=== PATIENT | male | born 1960 | race Caucasian/White ===

== ENCOUNTER 2017-10-14 12:39 | Emergency (ER) | payer BC ==
[2017-10-14] MEDS ORDERED: Sodium Chloride 0.9% 10 ML Syringe FLUSH PRN (12:50)
--- NOTE | 2017-10-14 12:58 | EDM.PDOC ---
ED HPI GENERAL MEDICAL PROBLEM - General Chief Complaint: Lower Extremity Injury/Pain Stated Complaint: LEFT FOOT PAIN Time Seen by Provider: 10/14/17 12:45 Source of Information: Reports: Patient History Limitations: Reports: No Limitations - History of Present Illness INITIAL COMMENTS - FREE TEXT/NARRATIVE: Patient states that for approximately the last week he's been experiencing left foot pain he states that he knows that a cart at work about 1,000 pounds has ran his left foot almost on a daily. Does not have any open sores but thought possibly it could be gout free does have a history of gout especially on his right foot. However he does state that this does feel different his whole foot has been swollen he did try using colchicine x4 doses with no relief 2 days ago which normally controls the gout symtpoms. Patient states he has felt a little bit more fatigued and not really in appetite which is also not consistent with him. The left foot is extremely painful has trouble importance soft for the extreme pain is unable to bear weight because of it he states it's much more swollen and red and warm and wanted normally is. Onset: Gradual Onset Date: 10/09/17 Duration: Getting Worse Location: Reports: Lower Extremity, Left Quality: Reports: Sharp, Stabbing, Throbbing Severity: Severe Improves with: Reports: Immobilization Worsens with: Reports: Movement Associated Symptoms: Reports: Malaise. Denies: Confusion, Chest Pain, Cough, cough w sputum, Diaphoresis, Fever/Chills Left Feet Pain Score (Numeric/FACES): 10 - Related Data Allergies Allergy/AdvReac Type Severity Reaction Status Date / Time Penicillins Allergy Other Verified 10/14/17 13:13 tramadol Allergy Nausea Verified 10/14/17 13:14 Home Meds: Home Meds Lisinopril 5 - 10 mg PO DAILY 03/12/15 [History] Cyclobenzaprine [Flexeril] 10 mg PO TID PRN #30 tablet 04/06/16 [Rx] Citalopram [Celexa] 20 mg PO DAILY 06/26/16 [History] Diazepam [Valium] 10 mg PO BID PRN 06/26/16 [History] Past Medical History HEENT History: Reports: Impaired Vision, Other (See Below) Other HEENT History: Trifocals Cardiovascular History: Reports: Hypertension, Other (See Below) Other Cardiovascular History: Patient does not know his cholesterol status Respiratory History: Reports: None. Denies: Asthma, COPD, Intubation, Previous , PE, Sleep Apnea, TB Gastrointestinal History: Reports: None. Denies: Cholelithiasis, Chronic Constipation, Chronic Diarrhea, Colon Polyp, Diverticulosis, Fecal Incontinence , Gastritis, GERD, GI Bleed, Hepatitis, Hiatal Hernia, Inflammatory Bowel Disease, Irritable Bowel Syndrome, Pancreatitis, PUD Genitourinary History: Reports: None. Denies: Chronic Renal Insuffiency, Renal Calculus, STD, Urinary Incontinence, UTI, Recurrent Musculoskeletal History: Reports: Back Pain, Chronic, Gout, Osteoarthritis, Other (See Below) Psychiatric History: Reports: Anxiety, Depression. Denies: Abuse, Victim of, ADD, ADHD, Psych Hospitalization(s), PTSD, Suicide Attempt, Suicidal Ideation Endocrine/Metabolic History: Reports: None. Denies: Diabetes, Type I, Diabetes , Type II, Hypothyroidism, IDDM Hematologic History: Reports: None. Denies: Anemia, Blood Transfusion(s), Iron Deficiency Immunologic History: Reports: None. Denies: AIDS, HIV, SLE Oncologic (Cancer) History: Reports: None - Infectious Disease History Infectious Disease History: Reports: Chicken Pox, Measles, Mumps - Past Surgical History HEENT Surgical History: Reports: Oral Surgery, Other (See Below) GI Surgical History: Reports: Hernia, Abdominal, Hernia, Inguinal, Other (See Below) Male Surgical History: Reports: Circumcision, Other (See Below) Musculoskeletal Surgical History: Reports: Arthroscopic Procedure, Shoulder Surgery, Other (See Below) - Past Imaging History Past Imaging History: Reports: None Social & Family History - Tobacco Use Smoking Status *Q: Former Smoker Years of Tobacco use: 6 Packs/Tins Daily: 2 (Between ages 20 and 26 ) Used Tobacco, but Quit: Yes Month Tobacco Last Used: At age 26 Second Hand Smoke Exposure: No - Caffeine Use Caffeine Use: Reports: None. Denies: Coffee, Energy Drinks, Soda, Tea - Alcohol Use Days Per Week of Alcohol Use: 1 (No previous DWIs, problems with alcohol abuse, etc.) Number of Drinks Per Day: 3 (Usually beer) Total Drinks Per Week: 3 - Recreational Drug Use Recreational Drug Use: Yes Drug Use in Last 12 Months: No Recreational Drug Type: Reports: Marijuana/Hashish, Other (see below). Denies: Amphetamines (Speed), Cocaine, Heroin, LSD (Acid), Methamphetamine, Morphine - Living Situation & Occupation Living situation: Reports: , Alone Occupation: Employed Review of Systems - Review of Systems Review Of Systems: See Below Constitutional: Reports: Other (fatigue ) Nose: Reports: No Symptoms Mouth/Throat: Reports: No Symptoms Respiratory: Reports: No Symptoms Cardiovascular: Reports: No Symptoms GI/Abdominal: Reports: No Symptoms Skin: Reports: No Symptoms ED EXAM, GENERAL - Physical Exam Exam: See Below Exam Limited By: No Limitations General Appearance: WD/WN, No Apparent Distress Respiratory/Chest: No Respiratory Distress, Lungs Clear, Normal Breath Sounds, No Accessory Muscle Use, Chest Non-Tender Cardiovascular: Normal Peripheral Pulses Extremities: Slow Capillary Refill, Limited Range of Motion (related to pain ), Increased Warmth, Redness, Other (severe tenderness to left foot ) Neurological: Alert, Oriented Skin Exam: Warm, Dry, Intact, Normal Color, No Rash Course - Vital Signs Last Recorded V/S: Last Vital Signs Temp 36.7 C 10/14/17 12:58 Pulse 68 10/14/17 12:58 Resp 16 10/14/17 12:58 BP 143/81 H 10/14/17 12:58 Pulse Ox 97 10/14/17 12:58 - Orders/Labs/Meds Orders: Active Orders 24 hr Category Date Time Status Foot 2V Lt [CR] Stat Exams 10/14/17 12:52 Taken CULTURE BLOOD [BC] Stat Lab 10/14/17 13:10 Received CULTURE BLOOD [BC] Stat Lab 10/14/17 13:15 Received Sodium Chloride 0.9% [Normal Saline] 1,000 ml Med 10/14/17 13:00 Active IV ASDIRECTED Sodium Chloride 0.9% [Saline Flush] Med 10/14/17 12:50 Active 10 ml FLUSH ASDIRECTED PRN Blood Culture x2 Reflex Set [OM.PC] Stat Oth 10/14/17 12:50 Ordered Peripheral IV Insertion Adult [OM.PC] Routine Oth 10/14/17 12:50 Ordered Medication Orders Sodium Chloride (Normal Saline) 1,000 mls @ 500 mls/hr IV ASDIRECTED JERRY Last Admin: 10/14/17 13:24 Dose: 500 mls/hr Sodium Chloride (Saline Flush) 10 ml FLUSH ASDIRECTED PRN PRN Reason: Keep Vein Open Labs: Laboratory Tests 10/14/17 10/14/17 10/14/17 Range/Units 13:10 13:10 13:10 WBC 10.1 H (4.0-10.0) x10^3/uL RBC 4.27 L (4.5-6.0) x10^6/uL Hgb 13.4 L (14.0-18.0) g/dL Hct 39.9 L (40.0-52.0) % MCV 93.4 H (78.0-93.0) fL MCH 31.4 (26.0-32.0) pg MCHC 33.6 (32.0-36.0) g/dL RDW Coeff of Andrea 12.6 (10.0-15.0) % Plt Count 164 (130-400) x10^3/uL Neut % (Auto) 66.6 (50.0-80.0) % Lymph % (Auto) 18.0 L (25.0-50.0) % [place] % (Auto) 9.5 (2.0-11.0) % Eos % (Auto) 5.5 H (0.0-4.0) % Baso % (Auto) 0.4 (0.2-1.2) % Sodium 142 (136-145) mmol/L Potassium 3.9 (3.5-5.1) mmol/L Chloride 106 (98-107) mmol/L Carbon Dioxide 23 (21-32) mmol/L BUN 13 (7-18) mg/dL Creatinine 1.0 (0.70-1.30) mg/dL Est Cr Clr Drug Dosing 88.90 mL/min Estimated GFR (MDRD) > 60 Glucose 134 H (74-106) mg/dL Lactic Acid 1.7 (0.4-2.0) mmol/L Uric Acid 9.1 H (3.5-7.2) mg/dL Calcium 8.9 (8.5-10.1) mg/dL Corrected Calcium 9.30 (8.5-10.1) mg/dL Total Bilirubin 0.2 (0.2-1.0) mg/dL AST 17 (15-37) U/L ALT 29 (16-63) U/L Alkaline Phosphatase 75 (46-116) U/L NT-Pro-B Natriuret Pep 67 (<=125) pg/mL Total Protein 7.2 (6.4-8.2) g/dL Albumin 3.5 (3.4-5.0) g/dL Globulin 3.7 Albumin/Globulin Ratio 0.95 Meds: Medications Generic Name Dose Route Start Last Admin Trade Name Freq PRN Reason Stop Dose Admin Sodium Chloride 1,000 mls @ 500 mls/hr 10/14/17 13:00 10/14/17 13:24 Normal Saline IV 500 mls/hr ASDIRECTED JERRY Administration Sodium Chloride 10 ml 10/14/17 12:50 Saline Flush FLUSH ASDIRECTED PRN Keep Vein Open Discontinued Medications Generic Name Dose Route Start Last Admin Trade Name Freq PRN Reason Stop Dose Admin Colchicine 1.2 mg 10/14/17 14:12 Colcrys PO 10/14/17 14:13 ONETIME ONE Ketorolac Tromethamine 15 mg 10/14/17 13:31 10/14/17 13:42 Toradol IVPUSH 10/14/17 13:32 15 mg ONETIME ONE Administration - Radiology Interpretation Free Text/Narrative:: Xray- soft tissue swelling, no acute osseous abnormalities. Discussed with the patient clinical findings and suggested the patient be admitted for hospitalization with IV antibiotics. Patient declines hospitalization at this point for he feels that he does not have enough money and would like to try this in the outpatient status. Did discuss the risks and benefits of this the patient still wants to try this on an outpatient basis. Patient is advised of the complications and adverse reactions that can occur cellulitis being treated at home and including but not limited to . Patient is aware of this and is still requesting to try to some outpatient status. We will currently treat him on an outpatient status for the gout along with the left foot cellulitis. Patient will be sent home with antibiotics will be instructed to take medications as prescribed in the fill the rest antibiotics on Monday he is to follow-up in the emergency department if he gets worse or has progression and any redness of his leg. Departure - Departure Time of Disposition: 14:40 Disposition: Home, Self-Care 01 Condition: Good Clinical Impression: Gout attack Qualifiers: Gout site: foot Encounter type: initial encounter Laterality: left Cellulitis Qualifiers: Site of cellulitis of extremity: lower extremity Laterality: left - Discharge Information Instructions: Cellulitis, Adult, Gout, [id number], Low-Purine Diet Referrals: Nery Wright DO [Primary Care Provider] - Forms: ED Department Discharge Additional Instructions: Print out provided to the pt regarding appropriate diet Did discuss with the pt signs and symptoms of worsening cellulites Pt is to follow up with in a week for close monitoring of his foot Pt is encouraged to increase his water intake Elevated the foot to relieve swelling and discomfort Pt is advised to take OTC pain management - My Orders Last 24 Hours: My Active Orders 10/14/17 12:50 Sodium Chloride 0.9% [Saline Flush] 10 ml FLUSH ASDIRECTED PRN Blood Culture x2 Reflex Set [OM.PC] Stat Peripheral IV Insertion Adult [OM.PC] Routine 10/14/17 12:52 Foot 2V Lt [CR] Stat 10/14/17 13:00 Sodium Chloride 0.9% [Normal Saline] 1,000 ml IV ASDIRECTED 10/14/17 13:10 CULTURE BLOOD [BC] Stat 10/14/17 13:15 CULTURE BLOOD [BC] Stat - Assessment/Plan Last 24 Hours: My Active Orders 10/14/17 12:50 Sodium Chloride 0.9% [Saline Flush] 10 ml FLUSH ASDIRECTED PRN Blood Culture x2 Reflex Set [OM.PC] Stat Peripheral IV Insertion Adult [OM.PC] Routine 10/14/17 12:52 Foot 2V Lt [CR] Stat 10/14/17 13:00 Sodium Chloride 0.9% [Normal Saline] 1,000 ml IV ASDIRECTED 10/14/17 13:10 CULTURE BLOOD [BC] Stat 10/14/17 13:15 CULTURE BLOOD [BC] Stat
[2017-10-14] MEDS ORDERED: Sodium Chloride 0.9% 1,000 ML IV SCH (13:00)
[2017-10-14 13:13] VITALS: BP 143/81
[2017-10-14] MEDS ORDERED: Ketorolac 15 MG/ML SDV IVPUSH ONE (13:31)
[2017-10-14 13:50] LABS: CHLORIDE,CL 106 mmol/L (98-107); SODIUM,NA 142 mmol/L (136-145)
[2017-10-14] MEDS ORDERED: Colchicine 0.6 MG Tab PO ONE (14:12)
[2017-10-14] MEDS ORDERED: Cephalexin 500 MG Cap ONE (14:40)
[2017-10-14] MEDS ORDERED: Colchicine 0.6 MG Tab ONE (14:40)
[2017-10-14] MEDS ORDERED: oxyCODONE 5 MG Tab PO ONE (14:42)
== END 2017-10-14 15:06 | disposition home or self-care (01) ==
LOC: VM.ED 12:39
DX: M10.9 Gout, unspecified (principal); L03.116 Cellulitis of left lower limb; I10 Essential (primary) hypertension; Z88.0 Allergy status to penicillin; Z88.5 Allergy status to narcotic agent; Z79.899 Other long term (current) drug therapy; Z87.891 Personal history of nicotine dependence
CPT/HCPCS: 36415; 73620; 80053; 83605; 83880; 84550; 85025; 87040; 96361; 96374; 99284; A9270; J1885; J7030

== ENCOUNTER 2024-03-09 22:17 | Emergency (ER) | payer BC, OTHER ==
[2024-03-09] MEDS ORDERED: Ketamine 200 MG/20 ML MDV ONE (22:25)
[2024-03-09] MEDS ORDERED: Insulin Regular, Human 100 Units/ML 3 ML Vial ONE (22:25)
[2024-03-09] MEDS ORDERED: Naloxone 0.4 MG/ML SDV ONE (22:25)
[2024-03-09] MEDS ORDERED: Midazolam 1 MG/ML 2 ML SDV ONE ×3 (22:25→23:38)
[2024-03-09] MEDS ORDERED: Succinylcholine 200 MG/10 ML MDV ONE ×3 (22:25)
[2024-03-09] MEDS ORDERED: Norepinephrine /D5W 4 MG/250 ML Premix ONE (22:25)
[2024-03-09] MEDS ORDERED: 50% Dextrose in Water 50 ML Syringe ONE (22:25)
[2024-03-09] MEDS ORDERED: Sodium Chloride 0.9% 1,000 ML IV ONE (22:30)
[2024-03-09 22:58] LABS: HEMATOCRIT 37.9 % (40.0-52.0); HEMOGLOBIN 12.9 g/dL (14.0-18.0); MEAN CORPUSCULAR HEMOGLOBIN 32.7 pg (26.0-32.0); MEAN CORPUSCULAR VOLUME 96.2 fL (78.0-93.0); PLATELET COUNT,PLT 381 x10^3/uL (130-400); RED BLOOD CELL COUNT 3.94 x10^6/uL (4.5-6.0); WHITE BLOOD CELL COUNT,WBC 11.4 x10^3/uL (4.0-10.0)
[2024-03-09 23:14] LABS: BAND PERCENT MAN 6 % (0-6); GIANT PLATELETS RARE; LYMPHOCYTES ABSOLUTE MAN 0.8 x10^3/uL (1.0-4.8); LYMPHOCYTES PERCENT MAN 7 % (25-50); METAMYELOCYTE PERCENT MAN 2 % (0); MONOCYTES ABSOLUTE MAN 0.8 x10^3/uL (0.0-0.8); MONOCYTES PERCENT MAN 7 % (2-11); NEUTROPHILS ABSOLUTE MAN 9.6 x10^3/uL (1.8-7.7); PLATELET COUNT ESTIMATE ADEQUATE; POLYCHROMASIA RARE; SEG NEUTROPHILS PERCENT MAN 78 % (50-80)
[2024-03-09 23:17] LABS: INR 1.1 (0.9-1.1)
[2024-03-09 23:26] LABS: ALANINE AMINOTRANSFERASE,ALT 138 U/L (16-63); ALBUMIN 2.4 g/dL (3.4-5.0); ALKALINE PHOSPHATASE 108 U/L (46-116); ANION GAP 44.1 mmol/L (5-15); ASPARTATE AMNIOTRANSFERASE,AST 234 U/L (15-37); BILIRUBIN TOTAL 0.6 mg/dL (0.2-1.0); CARBON DIOXIDE,CO2 14 mmol/L (21-32); CHLORIDE,CL 87 mmol/L (98-107); ETHANOL BLOOD MEDICAL 4 mg/dL (0-3); GLUCOSE RANDOM 168 mg/dL (70-99); PROTEIN TOTAL,TP 8.4 g/dL (6.4-8.2); SODIUM,NA 138 mmol/L (136-145)
[2024-03-09] MEDS: Iopamidol 612 MG/ML 100 ML Bottle IVPUSH ONE (23:30)
[2024-03-09 23:33] LABS: POTASSIUM,K 7.1 mmol/L (3.5-5.1)
[2024-03-09 23:34] LABS: CALCIUM 5.4 mg/dL (8.5-10.1); CREATININE 14.7 mg/dL (0.70-1.30); ESTIMATED GFR 3 mL/min (>=60)
[2024-03-10 00:06] LABS: APPEARANCE,URINE SLIGHTLY CLOUDY (CLEAR); BILIRUBIN,URINE MODERATE (NEGATIVE); COLOR,URINE BROWN (YELLOW); GLUCOSE,URINE 100 mg/dL (NEGATIVE); KETONES,URINE NEGATIVE (NEGATIVE); LEUKOCYTE ESTERASE,URINE NEGATIVE (NEGATIVE); NITRITE,URINE NEGATIVE (NEGATIVE); OCCULT BLOOD,URINE MODERATE (NEGATIVE); PROTEIN,URINE 30 mg/dL (NEGATIVE); UROBILINOGEN,URINE 0.2 EU/dL (0.2)
[2024-03-10 00:10] LABS: BLOOD UREA NITROGEN,BUN 392 mg/dL (7-18)
[2024-03-10 00:14] LABS: AMPHETAMINES SCREEN, URINE NEGATIVE (NEGATIVE); BARBITURATE SCREEN,URINE NEGATIVE (NEGATIVE); BENZODIAZEPINES SCREEN,URINE POSITIVE (NEGATIVE); BUPRENORPHINE SCREEN,URINE NEGATIVE (NEGATIVE); COCAINE METABOLITES,URINE NEGATIVE (NEGATIVE); METHADONE SCREEN, URINE NEGATIVE (NEGATIVE); METHAMPHETAMINE SCREEN, URINE NEGATIVE (NEGATIVE); OXYCODONE SCREEN,URINE NEGATIVE (NEGATIVE); PCP SCREEN,URINE NEGATIVE (NEGATIVE); THC SCREEN,URINE 50 NG/ML NEGATIVE (NEGATIVE)
[2024-03-10 00:23] LABS: RBC,URINE 0-5 /HPF (NOT SEEN); SQUAMOUS EPITHELIAL CELLS,UR RARE /HPF (NOT SEEN); WBC,URINE 0-5 /HPF (NOT SEEN)
[2024-03-10 00:24] LABS: AMORPHOUS SEDIMENT,URINE FEW; BACTERIA,URINE NOT SEEN /HPF (NOT SEEN); MUCUS,URINE NOT SEEN /LPF (NOT SEEN)
[2024-03-10] MEDS ORDERED: Midazolam 1 MG/ML 2 ML SDV ONE (07:08)
[2024-03-10] MEDS ORDERED: Ketamine 200 MG/20 ML MDV ONE (07:08)
== END 2024-03-10 00:15 | disposition short-term general hospital (02) ==
LOC: VM.ED 22:17
DX: A41.9 Sepsis, unspecified organism (principal); N17.9 Acute kidney failure, unspecified; R65.20 Severe sepsis without septic shock; E87.5 Hyperkalemia; I10 Essential (primary) hypertension; Z79.899 Other long term (current) drug therapy; Z88.8 Allergy status to other drugs, medicaments and biological substances; Z88.6 Allergy status to analgesic agent
CPT/HCPCS: 31500; 36415; 51702; 70450; 71260; 72125; 80053; 80305-QW; 80307; 81001; 82550; 82947; 83605; 84484; 85025; 85610; 87040; 93010; 96365; 96366; 96375; 99291; 99291-25; 99292; 99292-GF; J0330; J1815-GY; J2250; J2310; J3490; J7030; Q9967